=== PATIENT | male | born 1955 | race Hispanic/Latino ===

== ENCOUNTER 2023-02-06 19:37 | Emergency (ER) | payer MEDICARE ==
[2023-02-06 20:52] LABS: #Basophils 0.1 thou/uL (0.0-0.2); #Eosinphils 0.5 thou/uL (0.0-0.7); #Lymphocytes 3.9 thou/uL (1.20-3.40); #Neutrophils 5.1 thou/uL (1.40-6.50); %Basophils 0.7 % (0.0-1.0); %Eosinophils 5.1 % (0.0-10.0); %Lymphocytes 36.6 % (21.0-51.0); %Monocytes 9.4 % (0.0-10.0); %Neutrophils 48.1 % (42.0-75.0); Hemoglobin 13.1 g/dL (14.0-18.0); Mean Corpuscular HGB CONC 33.2 g/dL (32.0-36.0); Mean Corpuscular Hemoglobin 31.2 pg (27.0-31.0); Mean Platelet Volume 9.4 fL (7.4-10.4); Platelet Count 221 10x3/uL (130-400); RBC Distribution Width 13.6 % (11.5-14.5); Red Blood Cell (RBC) Count 4.19 mill/uL (4.70-6.10); White Blood Cell (WBC) Count 10.6 10x3/uL (4.8-10.8)
[2023-02-06 21:18] LABS: ALT (SGPT) 9 U/L (8-55); AST (SGOT) 18 U/L (5-34); Albumin 3.7 g/dL (3.4-4.8); Alkaline Phosphatase 69 U/L (40-110); Anion Gap 18 mmol/L (10-20); BUN (Urea Nitrogen) 6 mg/dL (8.4-25.7); Bilirubin, Total 0.6 mg/dL (0.2-1.2); Calc. Creatinine Clearance 0 mL/min (70-130); Calcium 8.8 mg/dL (7.8-10.44); Carbon Dioxide 24 mmol/L (23-31); Chloride 99 mmol/L (98-107); Estimated GFR 94; Globulin 3.3 g/dL (2.4-3.5); Glucose 113 mg/dL (80-115); Potassium 3.5 mmol/L (3.5-5.1); Sodium 137 mmol/L (136-145)
[2023-02-06 21:22] LABS: CKMB 0.7 ng/mL (0-6.6)
[2023-02-06] MEDS ORDERED: Diltiazem 125 MG/25 ML SDV ONE (21:27)
[2023-02-06] MEDS ORDERED: Sodium Chloride 0.9% 0 ML ONE (21:27)
[2023-02-06] MEDS ORDERED: Sodium Chloride 0.9% 500 ML ONE (21:27)
[2023-02-06] MEDS ORDERED: Metoprolol Tartrate 5 MG/5 ML VIAL ONE (21:33)
[2023-02-06 21:45] LABS: Bilirubin Negative (Negative); Blood, Urine Trace (Negative); Clarity Clear (Clear); Glucose, Urine (Dipstick) Negative (Negative); Ketone, Urine Negative (Negative); Leukocyte Negative (Negative); Nitrite Negative (Negative); Protein, Urine (Dipstick) Negative (Neg-Trace); Urobilinogen 0.2 mg/dL (Less than 2); pH, Urine 5.5 (5.0-9.0)
[2023-02-06 21:46] LABS: Specific Gravity, Urine 1.006 (1.002-1.036)
[2023-02-06 21:50] LABS: Bacteria/HPF Rare-Few HPF (None Seen); CAUTI Indications for Culture Dysuria,urgency,freq; RBC/HPF 0-3 HPF (0-3); Squamous Epithelial None Seen HPF (0-3); WBC/HPF None Seen HPF (0-3)
[2023-02-06 21:51] LABS: Urine Culture Reflex No No
[2023-02-06 23:29] LABS: Lactic Acid 2.3 mmol/L (0.5-2.2)
[2023-02-06] MEDS ORDERED: Cefepime 2 GM VIAL ONE (23:40)
[2023-02-06] MEDS ORDERED: Vancomycin 1 GM VIAL ONE (23:40)
[2023-02-06] MEDS ORDERED: Sodium Chloride 0.9% 250 ML 500 ML ONE (23:40)
[2023-02-06] MEDS ORDERED: Sodium Chloride 0.9% 100 ML ONE (23:40)
[2023-02-06] MEDS ORDERED: Vancomycin HCl 500 MG VIAL ONE (23:40)
[2023-02-07] MEDS ORDERED: Metoprolol Tartrate 25 MG TAB ONE (06:45)
[2023-02-07 07:01] LABS: CKMB 0.7 ng/mL (0-6.6)
== END 2023-02-07 06:45 | disposition short-term general hospital (02) ==
LOC: NAV ERS 19:37
DX: L03.114 Cellulitis of left upper limb (principal); F10.20 Alcohol dependence, uncomplicated; I48.91 Unspecified atrial fibrillation; R00.0 Tachycardia, unspecified; I11.0 Hypertensive heart disease with heart failure; I50.9 Heart failure, unspecified; E78.2 Mixed hyperlipidemia; G40.409 Other generalized epilepsy and epileptic syndromes, not intractable, without status epilepticus; W22.8XXA Striking against or struck by other objects, initial encounter; Y93.F2 Activity, caregiving, lifting; Y90.1 Blood alcohol level of 20-39 mg/100 ml; Z87.891 Personal history of nicotine dependence; Z86.73 Personal history of transient ischemic attack (TIA), and cerebral infarction without residual deficits; Z79.899 Other long term (current) drug therapy
CPT/HCPCS: 36415; 71045; 80053; 80307; 81001; 82550; 82553; 83605; 83880; 84484; 85025; 87040; 93005; 96365; 96366; 96367; 96375; J0692; J3370; J3490; J7030; J7050

== ENCOUNTER 2023-07-03 10:02 | Emergency (ER) | payer MEDICARE ==
[2023-07-03] MEDS ORDERED: Sodium Chloride 0.9% 1,000 ML ONE (11:03)
[2023-07-03 11:31] LABS: #Basophils 0.1 thou/uL (0.0-0.2); #Eosinphils 0.6 thou/uL (0.0-0.7); #Lymphocytes 2.1 thou/uL (1.20-3.40); #Monocytes 0.9 thou/uL (0.11-0.59); #Neutrophils 6.9 thou/uL (1.40-6.50); %Basophils 0.8 % (0.0-1.0); %Eosinophils 5.3 % (0.0-10.0); %Lymphocytes 19.9 % (21.0-51.0); %Monocytes 8.6 % (0.0-10.0); %Neutrophils 65.3 % (42.0-75.0); Hematocrit 41.2 % (42.0-52.0); Hemoglobin 13.5 g/dL (14.0-18.0); Mean Corpuscular HGB CONC 32.7 g/dL (32.0-36.0); Mean Corpuscular Hemoglobin 31.8 pg (27.0-31.0); Mean Corpuscular Volume 97.1 fl (78.0-98.0); Mean Platelet Volume 8.1 fL (7.4-10.4); Platelet Count 277 10x3/uL (130-400); Red Blood Cell (RBC) Count 4.24 mill/uL (4.70-6.10); White Blood Cell (WBC) Count 10.6 10x3/uL (4.8-10.8)
[2023-07-03 11:37] LABS: Prothrombin Time 13.6 sec (12.0-14.7)
[2023-07-03 11:38] LABS: PTT 33.1 sec (22.9-36.1)
[2023-07-03 11:42] LABS: ALT (SGPT) 11 U/L (8-55); AST (SGOT) 21 U/L (5-34); Albumin 3.5 g/dL (3.4-4.8); Alkaline Phosphatase 71 U/L (40-110); Anion Gap 17 mmol/L (10-20); BUN (Urea Nitrogen) 8 mg/dL (8.4-25.7); Bilirubin, Total 0.6 mg/dL (0.2-1.2); Calc. Creatinine Clearance 0 mL/min (70-130); Calcium 8.4 mg/dL (7.8-10.44); Carbon Dioxide 23 mmol/L (23-31); Chloride 103 mmol/L (98-107); Estimated GFR 95; Globulin 3.6 g/dL (2.4-3.5); Glucose 89 mg/dL (80-115); Protein, Total 7.1 g/dL (5.8-8.1); Sodium 139 mmol/L (136-145)
[2023-07-03] MEDS ORDERED: dilTIAZem 25 MG/5 ML VIAL ONE (12:03)
== END 2023-07-03 12:25 | disposition left against medical advice (07) ==
LOC: NAV ERS 10:02
DX: I48.91 Unspecified atrial fibrillation (principal); R00.0 Tachycardia, unspecified; I11.0 Hypertensive heart disease with heart failure; I50.9 Heart failure, unspecified; E78.2 Mixed hyperlipidemia; Z79.899 Other long term (current) drug therapy
CPT/HCPCS: 80053; 84484; 85025; 85610; 85730; 93005; J7050